=== PATIENT | male | born 1955 | race Asian ===

== ENCOUNTER 2024-08-13 22:44 | Observation (INO) | payer OTHER ==
[2024-08-13] MEDS ORDERED: METOCLOPRAMIDE HCL INJECTION 10 MG/2 ML VIAL ONE (23:59)
[2024-08-13] MEDS: ACETAMINOPHEN 1000 MG/100 ML BAG IVPB ONE (23:59)
[2024-08-13] MEDS: ONDANSETRON 4 MG/2 ML VIAL IVPUSH ONE (23:59)
[2024-08-14] MEDS: METOCLOPRAMIDE HCL INJECTION 10 MG/2 ML VIAL IVPB ONE (00:20)
[2024-08-14] MEDS: SODIUM CHLORIDE 0.9% 500 ML INFUS.BAG IV ONE (00:20)
[2024-08-14 00:27] LABS: BASO % 0.3 % (0-2.0); EOS % 0.5 % (0-4.5); HEMATOCRIT 42.6 % (35.4-49); HEMOGLOBIN 14.6 GM/dL (11.7-16.9); LYMPH % 11.2 % (8-40); MCH 31.2 pg (25.7-33.7); MCHC 34.2 g/dl (32.0-35.9); MEAN CELL VOLUME 91.2 fl (80-96); MEAN PLT VOLUME 7.7 fl (7.5-11.1); MONO % 3.2 % (3.8-10.2); NEUT % 84.8 % (42.8-82.8); PLATELET COUNT 262 10^3/uL (134-434); RBC 4.67 M/mm3 (4.00-5.60); RDW 13.2 % (11.9-15.9); WHITE BLOOD COUNT 9.5 K/mm3 (4.0-10.0)
[2024-08-14 00:56] LABS: POTASSIUM 3.8 mmol/L (3.5-5.1)
[2024-08-14 00:59] LABS: ALBUMIN 3.9 g/dl (3.4-5.0); BLOOD UREA NITROGEN 17.5 mg/dL (7-18); CALCIUM 9.6 mg/dL (8.5-10.1); MAGNESIUM 2.1 mg/dL (1.8-2.4)
[2024-08-14 01:02] LABS: CREATININE 1.2 mg/dL (0.55-1.3)
[2024-08-14 01:04] LABS: BILIRUBIN,TOTAL 0.4 mg/dL (0.2-1); TOT PROT 7.2 g/dl (6.4-8.2)
[2024-08-14 03:14] LABS: EPI CELLS 20 /uL (0-25.1); HYALINE CASTS 3 /uL (0-3.1); PH,URINE 8.5 (5.0-8.0); URINE APPEARANCE TURBID; URINE BACTERIA 23 /uL (0-1359); URINE BILIRUBIN NEGATIVE (NEGATIVE); URINE COLOR YELLOW; URINE GLUCOSE (UA) NEGATIVE (NEGATIVE); URINE KETONE NEGATIVE (NEGATIVE); URINE LEUK ESTERASE NEGATIVE (NEGATIVE); URINE NITRITE NEGATIVE (NEGATIVE); URINE PROTEIN 1+ (NEGATIVE); URINE UROBILINOGEN 0.2 mg/dL (0.2-1.0); URINE WBC 32 /uL (0-25.8)
[2024-08-14] MEDS ORDERED: MECLIZINE HCL 25 MG TABLET (FP) ONE ×3 (03:34→14:14)
[2024-08-14] MEDS: MECLIZINE HCL 25 MG TABLET (FP) PO ONE (03:38)
[2024-08-14] MEDS ORDERED: ONDANSETRON 4 MG/2 ML VIAL IVPUSH PRN (05:58)
[2024-08-14] MEDS: SODIUM CHLORIDE 1,000 ML IV SCH (06:20)
[2024-08-14 07:48] LABS: HEMATOCRIT 40.6 % (35.4-49); HEMOGLOBIN 13.6 GM/dL (11.7-16.9); MCH 31.2 pg (25.7-33.7); MCHC 33.6 g/dl (32.0-35.9); PLATELET COUNT 265 10^3/uL (134-434); RBC 4.37 M/mm3 (4.00-5.60); WHITE BLOOD COUNT 7.8 K/mm3 (4.0-10.0)
[2024-08-14 07:57] LABS: POTASSIUM 3.9 mmol/L (3.5-5.1)
[2024-08-14] MEDS ORDERED: ONDANSETRON 4 MG/2 ML VIAL ONE (08:08)
[2024-08-14] MEDS: ONDANSETRON 4 MG/2 ML VIAL IVPUSH ONE (08:22)
[2024-08-14] MEDS: MECLIZINE HCL 25 MG TABLET (FP) PO SCH (08:22)
[2024-08-14 08:25] LABS: ALBUMIN 3.7 g/dl (3.4-5.0); CALCIUM 9.1 mg/dL (8.5-10.1); MAGNESIUM 2.1 mg/dL (1.8-2.4)
[2024-08-14 08:30] LABS: PHOSPHOROUS 3.8 mg/dL (2.5-4.9)
[2024-08-14 08:31] LABS: BILIRUBIN,TOTAL 0.6 mg/dL (0.2-1); TOT PROT 6.7 g/dl (6.4-8.2)
[2024-08-14 17:13] VITALS: BMI 23.1
[2024-08-15] MEDS ORDERED: LORazepam 2 MG/ML SDV VIAL IVPUSH PRN (00:06)
[2024-08-15 02:39] VITALS: RESP 18
[2024-08-15 09:45] LABS: BASO % 0.7 % (0-2.0); EOS % 5.1 % (0-4.5); HEMATOCRIT 38.7 % (35.4-49); HEMOGLOBIN 13.2 GM/dL (11.7-16.9); LYMPH % 47.6 % (8-40); MCH 31.3 pg (25.7-33.7); MCHC 34.1 g/dl (32.0-35.9); MEAN CELL VOLUME 91.7 fl (80-96); MEAN PLT VOLUME 8.2 fl (7.5-11.1); MONO % 7.3 % (3.8-10.2); NEUT % 39.3 % (42.8-82.8); PLATELET COUNT 234 10^3/uL (134-434); RBC 4.21 M/mm3 (4.00-5.60); RDW 12.9 % (11.9-15.9); WHITE BLOOD COUNT 4.3 K/mm3 (4.0-10.0)
[2024-08-15 10:16] LABS: POTASSIUM 3.9 mmol/L (3.5-5.1)
[2024-08-15 10:22] LABS: BLOOD UREA NITROGEN 13.4 mg/dL (7-18); CALCIUM 8.2 mg/dL (8.5-10.1)
[2024-08-15 10:24] LABS: CREATININE 1.1 mg/dL (0.55-1.3)
[2024-08-15] MEDS ORDERED: LORazepam 0.5 MG TABLET PO PRN (13:49)
[2024-08-15 14:03] VITALS: TEMP 97.7
[2024-08-15 15:44] VITALS: BP 140/74; PULSE 70
== END 2024-08-15 16:04 | disposition home or self-care (01) ==
LOC: JER 22:44 → JERBED 08-14 05:45 → UNDOADMOB 08-14 05:45 → JERBED 08-14 05:54 → OBSVTOIN 08-14 06:00 → INTOOBSV 08-14 06:00 → J8W 08-14 16:28 → JERBED 08-14 16:28 → J8W 08-15 10:32 → JERBED 08-15 10:32
PROVIDERS: ADMIT Internal Medicine; ATTEND Nurse Practitioner
PROC: 3E0333Z Introduction of Anti-inflammatory into Peripheral Vein, Percutaneous Approach (ICD-10-PCS; principal; 2024-08-15)
PROC: 3E033GC Introduction of Other Therapeutic Substance into Peripheral Vein, Percutaneous Approach (ICD-10-PCS; 2024-08-15)
PROC: 3E0337Z Introduction of Electrolytic and Water Balance Substance into Peripheral Vein, Percutaneous Approach (ICD-10-PCS; 2024-08-15)
DX: H81.10 Benign paroxysmal vertigo, unspecified ear (principal); H90.5 Unspecified sensorineural hearing loss; E78.5 Hyperlipidemia, unspecified; Z96.21 Cochlear implant status
CPT/HCPCS: 0241U-QW; 36415; 70450-TC; 71045-TC-FY; 80048; 80053; 81003; 83690; 83735; 84100; 84443; 84484; 85025; 85027; 87086; 93005; 93010; 96361; 96374; 96375; 96376; 97116-GP; 97161-GP; 99285-25; G0378